=== PATIENT | female | born 2000 | race Two or more races ===

== ENCOUNTER 2023-05-15 07:20 | Emergency (ER) | payer MEDICAID ==
[~2023-05-15] VITALS: Ht 149.9 cm; Wt 57.6 kg
[2023-05-15 08:42] LABS: Basophils # (auto) 0 10 ^3/uL (0-0.2); Eosinophils # (auto) 0.1 10 ^3/uL (0-0.8); Eosinophils % (auto) 1.2 % (0.0-7.0); Monocytes # (auto) 0.4 10 ^3/uL (0-1.3)
[2023-05-15 08:44] LABS: Basophils % (auto) 0.2 % (0.0-2.0); Hematocrit 33.4 % (36.0-46.0); Hemoglobin 10.5 g/dL (12.2-16.2); Lymphocytes % (auto) 19.8 % (10.0-50.0); Mean Corpuscular Hemoglobin 24.3 pg (28.0-32.0); Mean Corpuscular Hgb Conc. 31.6 g/dL (32.0-36.0); Monocytes % (auto) 3.7 % (0.0-12.0); Neutrophils # (auto) 7.6 10 ^3/uL (1.6-8.6); Neutrophils % (auto) 75.1 % (37.0-80.0); Red Blood Cells 4.33 10^6/uL (4.0-5.20); Red Cell Distribution Width 17.7 % (11.8-14.3); White Blood Cell 10.1 10^3/uL (4.4-10.8)
[2023-05-15 08:52] LABS: Chloride 105 mmol/L (98-107); Potassium 3.5 mmol/L (3.5-5.1); Sodium 139 mmol/L (136-145)
[2023-05-15 08:54] LABS: Anion Gap 10 (5-15); Carbon Dioxide 24 mmol/L (20-30)
[2023-05-15 08:55] LABS: Calcium 9.8 mg/dL (8.7-10.4)
[2023-05-15 08:59] LABS: BUN/Creatinine Ratio 9.8 (10.0-20.0); Blood Urea Nitrogen 6 mg/dL (9-23); Glucose 106 mg/dL (74-106)
[2023-05-15 09:00] LABS: Alkaline Phosphatase 80 U/L (46-116)
[2023-05-15 09:01] LABS: Alanine Aminotransferase 20 U/L (7-40); Albumin 4.7 g/dL (3.2-4.8); Aspartate Aminotransferase 15 U/L (13-40)
[2023-05-15 09:02] LABS: Bilirubin, Total 0.4 mg/dL (0.2-1.0); Total Protein 7.6 g/dL (5.7-8.2)
[2023-05-15] MEDS: HYDROcodone-ACET 10/325MG TAB PO ONE (10:11)
[2023-05-15 12:27] LABS: Urine Bacteria NONE SEEN /hpf (None Seen); Urine Blood Negative /uL (Negative); Urine Clarity Clear (Clear); Urine Color Yellow (Yellow); Urine Hyaline Cast FEW /lpf (0 - 2); Urine Mucus FEW (None Seen); Urine Protein, UAD TRACE (Negative); Urine Specific Gravity 1.027 (1.001-1.035); Urine Urobilinogen Normal (Negative); Urine WBC <1 /hpf (0 - 5); Urine pH 6.5 (5.0-8.0)
[2023-05-15 15:56] VITALS: BP 120/80; PULSE 78; RESP 15; TEMP 98.2; O2SAT 97
== END 2023-05-15 15:57 | disposition home or self-care (01) ==
LOC: ER 07:20
DX: K56.7 Ileus, unspecified (principal)
CPT/HCPCS: 36415; 80053; 81001; 85025